=== PATIENT | female | born 1980 | race Caucasian/White ===

== ENCOUNTER → 2020-04-28 10:26 | Outpatient (CLI) | payer OTHER, SELFPAY ==
--- NOTE | 2020-04-28 10:27 | US_ITS ---
PROCEDURE: US TRANSVAGINAL CLINICAL INDICATION: heavy bleeding COMPARISON: US PTV US PELVIS-TRANSVAGINAL ONLY from 10/27/2014 FINDINGS: The uterus is 7 x 3 x 5 cm with a combined endometrial thickness of 6 mm. No uterine mass evident. Right ovary is 4 x 3 x 4 cm. Left ovary is 3 x 2 x 2 cm. Right ovarian cyst noted. This may represent 2 cysts or a single septated cyst which in combination measures 3.6 x 2.5 cm. No cul-de-sac fluid. There is a small left ovarian cyst noted measuring 1 cm. IMPRESSION: Bilateral ovarian cyst. Possible 2 cysts versus a septated cyst on the right. Consider follow-up to confirm stability or resolution. Dictated by: Gabe Dill MD 05/01/2020 06:26 Gabe Dill MD in OV 05/01/2020 06:26
== END ==
PROVIDERS: PCP Family Medicine; Visit Provider Nurse Practitioner Obstetrics & Gynecology
DX: N93.8 Other specified abnormal uterine and vaginal bleeding (principal)
CPT/HCPCS: 76830

== ENCOUNTER → 2020-05-04 09:21 | Outpatient (CLI) | payer OTHER, SELFPAY ==
[2020-05-04 09:56] LABS: Basophils % 0.4 % (0.1-2.0); Eosinophils # 0.2 K/mm3 (0.0-0.4); Eosinophils % 3.1 % (0.1-12.0); Hemoglobin 11.8 g/dL (12.2-16.2); Lymphocytes # 1.2 K/mm3 (0.7-4.5); Mean Corpuscular Hemoglobin 30.7 pg (27.0-31.2); Mean Corpuscular Volume 95.9 fl (81-99); Mean Platelet Volume 7.2 fl (7.4-10.4); Monocytes # 0.2 K/mm3 (0.1-1.0); Monocytes % 3.5 % (1.7-9.3); Neutrophils # 3.2 K/mm3 (1.8-7.8); Platelet Count 184 K/mm3 (142-424); Red Blood Count 3.85 M/mm3 (4.20-5.40); Red Cell Distribution Width 12.7 % (11.5-17.5); White Blood Count 4.8 K/mm3 (4.8-10.8)
[2020-05-04 10:21] LABS: Chloride 106 mmol/L (98-107); Sodium 135 mmol/L (136-145)
[2020-05-04 10:22] LABS: Potassium 4.2 mmoL/L (3.5-5.1)
[2020-05-04 10:24] LABS: Alanine Aminotransferase 25 U/L (12-78); Albumin Level 3.8 g/dl (3.5-5.0); Albumin/Globulin Ratio 1.4 (1.1-1.8); Alkaline Phosphatase 62 U/L (38-126); Anion Gap 12.2 mEq/L (5-15); Aspartate Amino Transferase 36 U/L (14-36); Bilirubin,Total 0.4 mg/dl (0.2-1.3); Blood Urea Nitrogen 17 mg/dl (7-17); Carbon Dioxide 21 mmol/L (22.0-30.0); Estimated Glomerular Filt Rate 70 ml/min (>60); GFR (African American) 84 ML/MIN (>60); Globulin 2.8 g/dL (1.3-3.2); HCG Qualitative, Serum Negative (Negative); Total Protein,Serum 6.6 g/dl (6.3-8.2)
[2020-05-04 10:25] LABS: Calcium 9.5 mg/dl (8.4-10.2); Glucose 98 mg/dl (74-100)
[2020-05-04 10:42] LABS: Triiodothryronine (T3) Uptake 29 % (23.5-40.5)
[2020-05-04 10:43] LABS: Free Thyroxine Index 2.6 ug/dL (5.93-13.13); T4 (Thyroxine) 8.8 ug/dl (5.53-11.0)
[2020-05-04 10:56] LABS: Thyroid Stimulating Hormone 3.12 uIU/mL (0.465-4.68)
[2020-05-04 11:03] LABS: Coronavirus 19 IgG Antibody Negative (Negative); Coronavirus 19 IgM Antibody Negative (Negative)
== END ==
PROVIDERS: Visit Provider Nurse Practitioner Obstetrics & Gynecology
DX: Z01.89 Encounter for other specified special examinations (principal); N92.0 Excessive and frequent menstruation with regular cycle; R10.2 Pelvic and perineal pain; Z30.09 Encounter for other general counseling and advice on contraception
CPT/HCPCS: 36415; 80053; 84436; 84443; 84479; 84703; 85025; 86328

== ENCOUNTER 2020-05-05 06:24 | Day surgery (SDC) | payer OTHER, SELFPAY ==
[2020-05-03 10:47] VITALS: BMI 34.5
[2020-05-05] VITALS (11 sets, daily range): BP systolic 103–143; BP diastolic 56–97; PULSE 56–97; RESP 14–20; TEMP 36.1–43; O2SAT 95–100
--- NOTE | 2020-05-05 08:03 | P.PN_ITS ---
[facility] Anesthesia Checklist - Structural Data Admitted From: Home Planned Operative Procedure/s: bilat salpingectomy Consent for Planned Operative Procedure(s) Verified: Yes - Additional verifications Anesthesia Reactions: No Hx Blood Transfusions: No Blood Transfusion Reaction: No - Airway Assessment C-Spine Mobility Assessed: Yes TMJ Mobility Assessed: Yes Dentition: Good Dentition - Neurological Assessment Level of Consciousness: Awake, Alert, Appropriate - Anesthesia Plan Anesthesia Risk discussed: Yes Anesthesia Plan: Verified ASA Class: II Anesthesia Type: General [facility] History I have reviewed the patient's past medical history: Yes Medical History: Denies:: Cancer, Diabetes Mellitus Type 1, Diabetes Mellitus Type 2, Internal Pacemaker, MRSA, Seizures *Have you ever received a pneumonia vaccine?: No *Have you received a flu vaccine this season?: No Other Medical History: Denies: Blood Transfusion Reaction Anesthesia experience/problems:: none Other Surgeries: No: Pacemaker Amputation: No Fractures: No - *Social History Smoking Status: Unknown if ever smoked Alcohol Intake: never Alcohol Intake Frequency:: other Substance Use Type: heroin, opiates *Occupational Status:: unemployed Housing: house Household Members: none *Travel in the last 8 weeks: None Family Hx:: No significant family history
--- NOTE | 2020-05-05 08:47 | HMH.OPNOTE ---
Date of procedure: 05/05/20 Pre-op Diagnosis:: Desire for sterilization, menorrhagia, dysmenorrhea Post-op Diagnosis:: Desire for sterilization, menorrhagia, dysmenorrhea, endometriosis, pelvic peritoneal adhesions Procedure performed:: Diagnostic laparoscopy with bilateral salpingectomy, lysis of adhesions, hysteroscopy, dilation and curettage, NovaSure ablation Surgeon:: Jarrett Nicholson MD [employer]ER:: Hank Denton Anesthesia: GETA Estimated blood loss (mL): 75 Clinical Note:: She is a 39-year-old lady who expressed desire for sterilization. She also had extremely heavy periods. Endometrial biopsy in my office was negative. After having discussed the risks and benefits she has to go ahead with a laparoscopic bilateral salpingectomy, hysteroscopy, dilation and curettage as well as NovaSure ablation. Operative findings:: On entering the abdominal cavity the uterus was small and anteverted. The right tube was normal as was the right ovary. The left ovary was twisted upon itself and adherent to the left pelvic sidewall near the insertion of the round ligament. The left tube was wrapped around the ovary. Upon freeing up the ovary it was noted that there was some dark old blood consistent with endometriosis. There was also spots of endometriosis all along the bladder flap. There was only one small pinhead size powder burn on the left side of the bladder peritoneum. The upper abdomen and rest of the pelvis appeared normal. Operative note:: She was taken to the operating room where general anesthesia was found be adequate. She was prepped and draped in normal sterile fashion in the semilithotomy position. A weighted speculum was placed in the vagina and the anterior lip of the cervix was grasped with a tenaculum. I then inserted a Mariela uterine manipulator into the cervical os. The balloon was then insufflated. I changed gloves and injected 10 cc of 0.5% ropivacaine around her umbilicus and made a small incision within the umbilicus. I inserted a Veress needle into the abdominal cavity. The peritoneal cavity was then insufflated with carbon dioxide gas to a pressure of 20 mmHg. I then inserted a 5 millimeter trocar under direct vision. I injected through and through the pubic hairline, made a small incision here and inserted an 8 mm trocar under direct vision. I identified the inferior epigastric artery on the left side, went lateral to these and injected through and through. I then placed a 5 mm trocar here under direct vision. The pelvis and upper abdomen were then inspected and the findings were as previously dictated. I grasped the right tube at the cornua and using harmonic scalpel on coagulation mode I cut through the tube. I then grasped the distal tube and using harmonic scalpel cut along the mesosalpinx. The tube was removed through 8 mm trocar site. On the patient's left side the ovary and tube were adherent to the left pelvic sidewall. It was also adherent to the epiploica of the sigmoid colon. Using harmonic scalpel I was able to free up these adhesions. I then grasped the left tube and using harmonic scalpel dissected off the ovary all the way to the uterine cornua. I then cut across the uterine cornea with harmonic scalpel. The tube was then removed through the 8 mm trocar site. After once again assuring hemostasis I then placed a large piece of Surgicel over the raw area slightly superior to the ovary. I then wrapped the ovary with a piece of Interceed. The pelvis was rinsed with saline. Hemostasis was once again assured. I then injected 30 cc of 0.5% ropivacaine into the pelvis. After assuring hemostasis the gas was let out of the abdomen and hemostasis was once again assured. The abdomen was then reinsufflated. The secondary trochars were removed under direct vision. The gas was let out her abdomen. The primary trocar was then removed. The 8 mm trocar site was closed deeply with 2-0 Vicryl suture followed by subc
--- NOTE | 2020-05-05 08:57 | HMH.ANESI ---
[facility] Anesthesia Record Part I Intake, IV Amount: 1,500 Estimated blood loss (mL): 70 Urine output (mL): 100 Blood Pressure: 143/97 SaO2: 98 Pulse Rate: 67 Respiratory Rate: 14 Temperature: 97 F Patient is:: Awake, Stable Stable to PACU at:: 08:55
--- NOTE | 2020-05-05 14:12 | HMH.ANESII ---
[facility] Anesthesia Record Part II Discharge Time: 09:25 Destination: [facility] PACU nurse assessment reviewed?: Yes Patient Condition:: Good Anesthesia Complications:: None Swallowing reflex intact?: Yes Cyanosis?: No Blood Pressure: 103/71 Pulse Rate: 63 Temperature: 97.8 F Mental Status: Alert & Oriented Pain level:: 3 Nausea and/or vomitting:: None Intake, IV Amount: 1,500
== END 2020-05-05 10:05 | disposition home or self-care (01) ==
LOC: OR 06:25
PROVIDERS: PCP Family Medicine; Visit Provider Nurse Practitioner Obstetrics & Gynecology
PROC: (CPT 58661; principal; 2020-05-05 07:30)
PROC: 0U5B8ZZ Destruction of Endometrium, Via Natural or Artificial Opening Endoscopic (ICD-10-PCS; CPT 58563; 2020-05-05 07:30)
DX: Z30.2 Encounter for sterilization (principal); N92.0 Excessive and frequent menstruation with regular cycle; Z79.899 Other long term (current) drug therapy
CPT/HCPCS: 58661; 58563; 96374; J2405; J2710

== ENCOUNTER → 2020-09-19 15:53 | Outpatient (CLI) | payer OTHER, SELFPAY ==
[2020-09-23 15:47] LABS: Neisseria gonorrhoeae, NAA Negative (Negative)
== END ==
PROVIDERS: Visit Provider Nurse Practitioner Obstetrics & Gynecology
DX: Z72.51 High risk heterosexual behavior (principal)
CPT/HCPCS: 87491; 87591

== ENCOUNTER 2020-12-08 16:15 | Emergency (ER) | payer OTHER, SELFPAY ==
[2020-12-08] VITALS (7 sets, daily range): BP systolic 107–127; BP diastolic 58–80; PULSE 43–66; RESP 16–18; TEMP 37.2; O2SAT 97–98; BMI 35.2; BMI 35.0
--- NOTE | 2020-12-08 16:45 | PC.NURSE ---
PATIENT SENT TO ER PER LYDIA WEBB APRN FOR FURTHER EVALUATION. REPORT GIVEN TO Andrew PAN RN BY Ashutosh WEBB APRN
--- NOTE | 2020-12-08 17:29 | CT_ITS ---
PROCEDURE INFORMATION: Exam: CT Abdomen And Pelvis Without Contrast Exam date and time: 12/08/2020 5:29 PM Age: 40 years old Clinical indication: Abdominal pain; Localized; Prior surgery; Surgery date: 6+ months; Surgery type: Fallopian tubes removed; Patient HX: Lower abd pain and cramping and lower back pain for weeks TECHNIQUE: Imaging protocol: Computed tomography of the abdomen and pelvis without contrast. Total images: 336 Radiation optimization: All CT scans at this facility use at least one of these dose optimization techniques: automated exposure control; mA and/or kV adjustment per patient size (includes targeted exams where dose is matched to clinical indication); or iterative reconstruction. COMPARISON: PTV US PELVIS-TRANSVAGINAL ONLY 10/27/2014 2:44 PM FINDINGS: Lungs: 2 mm noncalcified juxtapleural nodule in the posterior left lower lobe on series 3, image 9. For patients at low risk (minimal or absent history of smoking and of other known risk factors), no routine follow-up is indicated. For patients at high risk (history of smoking or of other known risk factors), consider optional CT at 12 months. (Kt et al., Fleischner Society, 2017). Heart: Heart size normal. Mediastinal space: The visualized distal esophagus is normal. Liver: Normal contour. No mass lesions. No intrahepatic biliary ductal dilatation. Gallbladder and bile ducts: The gallbladder is partially contracted but otherwise unremarkable. Nondilated biliary system. Pancreas: Normal. No inflammatory changes or ductal dilation. Spleen: Mild splenomegaly measuring 14.3 cm. Granulomatous calcifications in the spleen. Adrenal glands: 13 x 10 mm left adrenal adenoma measuring -20 Hounsfield units. Right adrenal gland is normal. Kidneys and ureters: No acute abnormalities. No hydronephrosis or hydroureter. 2 mm nonobstructive stone in the lower pole of the left kidney. Stomach and bowel: The stomach is unremarkable. The small bowel is nondilated with no gross abnormality. No acute colonic abnormalities. There is a moderate amount of stool distributed in the mid and proximal colon suggesting possible constipation. Appendix: The appendix is normal in caliber and demonstrates no evidence of appendicitis. Intraperitoneal space: No free fluid or air. Vasculature: No acute process. No abdominal aortic aneurysm. Lymph nodes: No adenopathy. Urinary bladder: Unremarkable as visualized. Reproductive: The uterus is unremarkable. 2.3 cm simple left adnexal cystic focus which may be of ovarian origin or possibly a paraovarian cyst. Thin 3 mm calcification laterally near the cyst may represent postoperative changes along the margin of the resected fallopian tube described clinically. Right ovary not visualized. Bones/joints: No acute osseous abnormalities. Soft tissues: Unremarkable. IMPRESSION: 1. Mild splenomegaly. 2. 2 mm noncalcified pulmonary nodule in the posterior left lower lobe. Please see recommendations above. 3. 13 mm left adrenal adenoma which does not require further evaluation. 4. Moderate stool in the mid and proximal colon, possible constipation. 5. 2.3 cm left adnexal cyst which may be of ovarian origin or a paraovarian cyst. Consider sonographic characterization to confirm simple features. COMMENTS: Consistent with the [employer]'s Incidental Findings Committee white paper (J Am Josefa Radiol 2017): For any incidental adrenal lesion greater than 1 cm but less than 4 cm classified in this report as benign, likely benign, or containing fat (including classification as an adenoma or myelolipoma), no follow-up imagi
[2020-12-08 17:34] LABS: Microscopic, Urine URINE MICROSCOPIC (MICROSCOPIC)
[2020-12-08 17:35] LABS: Appearance,Urine CLEAR (Clear); Bilirubin,Urine Negative (Negative); Blood, Urine Negative (Negative); Color,Urine YELLOW (Yellow); Glucose,Urine (UA) Negative (Negative); Ketones,Urine Negative (Negative); Leukocyte Esterase,Urine Negative (Negative); Nitrate,Urine Negative (Negative); Protein,Urine Negative (Negative); Specific Gravity, Urine 1.015 (1.005-1.030); Urobilinogen,Urine 0.2 EU/dl (0.2)
[2020-12-08 17:36] LABS: Apearance,Urine Cloudy (Clear); Bilirubin,Urine Negative (Negative); Blood, Urine Negative (Negative); Color,Urine Yellow (Yellow); Glucose,Urine (UA) Negative (Negative); Ketones,Urine Negative (Negative); Protein,Urine Negative (Negative); UTC Leukocyte Esterase,Urine Negative (Negative); UTC Nitrate,Urine Negative (Negative); Urobilinogen,Urine 0.2 EU/dl (0.2)
[2020-12-08 17:43] LABS: Bacteria,Urine Trace /lpf; Squamous Epithelial Cell,Urine Occasional #/hpf (0-5); WBC,Urine Occasional #/hpf (0-3)
[2020-12-08 17:44] LABS: Amorphous Sediment,Urine 2+ /lpf
[2020-12-08 17:51] LABS: Basophils % 0.4 % (0.1-2.0); Eosinophils # 0.1 K/mm3 (0.0-0.4); Eosinophils % 2.2 % (0.1-12.0); Hematocrit 36.6 % (37.0-47.0); Hemoglobin 12.2 g/dL (12.2-16.2); Lymphocytes # 1.9 K/mm3 (0.7-4.5); Lymphocytes % 33.4 % (10-50); Mean Corpuscular HGB Conc 33.5 g/dL (31.8-35.4); Mean Corpuscular Hemoglobin 30.8 pg (27.0-31.2); Mean Platelet Volume 7.8 fl (7.4-10.4); Monocytes # 0.3 K/mm3 (0.1-1.0); Monocytes % 5.7 % (1.7-9.3); Neutrophils # 3.3 K/mm3 (1.8-7.8); Neutrophils % 58.3 % (37.0-80.0); Platelet Count 161 K/mm3 (142-424); Red Blood Count 3.98 M/mm3 (4.20-5.40); Red Cell Distribution Width 13.1 % (11.5-17.5); White Blood Count 5.6 K/mm3 (4.8-10.8)
[2020-12-08 17:56] LABS: Chloride 111 mmol/L (98-107); Potassium 4.3 mmoL/L (3.5-5.1); Sodium 137 mmol/L (136-145)
[2020-12-08 17:58] LABS: Alanine Aminotransferase 19 U/L (12-78); Aspartate Amino Transferase 38 U/L (14-36); Blood Urea Nitrogen 17 mg/dl (7-17); Creatinine Clearance Estimated 146 mL/min (50-200); Estimated Glomerular Filt Rate 79 ml/min (>60); GFR (African American) 96 ML/MIN (>60)
[2020-12-08 17:59] LABS: Albumin Level 4.2 g/dl (3.5-5.0); Albumin/Globulin Ratio 1.4 (1.1-1.8); Alkaline Phosphatase 59 U/L (38-126); Anion Gap 8.3 mEq/L (5-15); Bilirubin,Total 0.3 mg/dl (0.2-1.3); Calcium 9.7 mg/dl (8.4-10.2); Carbon Dioxide 22 mmol/L (22.0-30.0); Globulin 2.9 g/dL (1.3-3.2); Glucose 102 mg/dl (74-100); Lipase 83 U/L (23-300); Total Protein,Serum 7.1 g/dl (6.3-8.2)
--- NOTE | 2020-12-08 18:53 | US_ITS ---
PROCEDURE INFORMATION: Exam: US Pelvis, Transvaginal Exam date and time: 12/08/2020 6:53 PM Age: 40 years old Clinical indication: Pelvic pain; Prior surgery; Surgery date: 6+ months; Surgery type: PT states both fallopian tubes have been removed; Patient HX: PT having pelvis pain PT states HX of ovarian cysts. PT had CT scan this evening CT report states a left ov cyst but on US exam lt ovary wnl and there is a cyst on the right ovary no free fluid. Small cystic area seen in fundus of uterus; Additional info: Pain, cyst TECHNIQUE: Imaging protocol: Real-time transvaginal pelvic ultrasound with image documentation. Transvaginal imaging was used for better evaluation of the endometrium, adnexa, and/or cervix. Total images: 38 COMPARISON: US TRANSVAGINAL 04/28/2020 11:19 AM FINDINGS: Uterus/cervix: The uterus measures 6.5 x 2.5 x 3.9 cm. Normal configuration. No solid mass lesions are identified. There is a 5 x 5 x 4 mm cystic focus in the rightward uterine fundus along the cornua with fairly simple sonographic features. No internal nodularity or septation is evident. This could represent an endometrial cyst or small degenerated fibroid. Correlate clinically to ensure negative beta HCG. Endometrial stripe thickness approximately 5 mm. Right adnexa: The right ovary measures 1.7 x 2.1 x 1.4 cm. Normal grayscale appearance with a 10 mm simple appearing cyst/follicle, within physiologic range. Internal color flow is documented without evidence of torsion. Left adnexa: The left ovary measures 1.2 x 1.4 x 1.2 cm. What was suspected to represent a cyst on the recent CT due to its low attenuation values of approximately 0 Hounsfield units actually represents the left ovary itself, with intermediate echogenicity sonographically. Internal color flow is documented with no evidence of torsion. Intraperitoneal space: No free fluid. IMPRESSION: 1. The ovaries are sonographically normal. The previously suspected cystic structure in the left adnexa actually represents the left ovary itself without gross sonographic abnormality. The right ovary contains a 10 mm simple follicle which is within physiologic range. 2. There is a 5 mm cystic focus in the rightward uterine fundus along the cornua, possibly an endometrial cyst or degenerated fibroid, new since 04/28/2020. Correlate with beta HCG to exclude early although no yolk sac or pole is evident and this seems unlikely given the surgical history.
--- NOTE | 2020-12-08 19:19 | HMH.EDGENADL ---
ED Disposition Clinical Impression: Ovarian cyst Qualifiers: Laterality: left Qualified Code(s): N83.202 - Unspecified ovarian cyst, left side Disposition: Still a Patient Condition on Discharge: Good Instructions: DI for Ovarian Cyst Prescriptions: Ibuprofen [Ibuprofen 800mg Tablet] 800 mg PO TIDP PRN #20 tab PRN Reason: Moderate Pain Transmission Status: Pending to [facility] Referrals: Ashly Esteban MD [Primary Care Provider] - Jarrett Nicholson MD [Staff Physician] - - Critical Care Critical Care Time: No Attestation: On 12/08/20, the high probability of a clinically significant, sudden or life threatening deterioration of the following system(s) required my full and direct attention, intervention and personal management. The time I documented below is in addition to time spent performing reported procedures but includes the following listed in this critical care notation. Medical Decision Making - Medical Records Medical records reviewed: Yes: I reviewed the patient's medical records. - Tyrel Inquiry Pt receiving controlled substance: Yes Tyrel was queried for this patient: No Risks and benefits of using a controlled substance: were discussed with pt by me Vital Signs: 12/08/20 16:16 12/08/20 16:27 12/08/20 16:30 Temperature 98.9 F 98.9 F 98.9 F Temperature Source Oral Oral Oral Pulse Rate [Right Radial] 66 66 66 Respiratory Rate 18 18 18 Blood Pressure [Right Arm] 125/80 125/80 125/80 Blood Pressure Mean [Right Arm] 95 95 95 Blood Pressure Source [Right Arm] Automatic Cuff Blood Pressure Position [Right Arm] Sitting 02 Sat by Pulse Oximetry 97 97 97 Oxygen Delivery Method Room Air Room Air Room Air - Lab Data Lab Results 12/08/20 16:30: Urine Color Yellow, Urine Appearance Clear, Urine pH 7.0, Ur Specific [place] 1.015, Urine Protein Negative, Urine Glucose (UA) Negative, Urine Ketones Negative, Urine Blood Negative, Urine Nitrate Negative, Urine Bilirubin Negative, Urine Urobilinogen 0.2, Ur Leukocyte Esterase Negative, Urine RBC None, Urine WBC Occasional, Ur Squamous Epith Cells Occasional, Amorphous Sediment 2+, Urine Bacteria Trace 12/08/20 17:35: Urine Color Yellow, Urine Appearance Cloudy, Urine pH 7.0, Ur Specific [place] 1.020, Urine Protein Negative, Urine Glucose (UA) Negative, Urine Ketones Negative, Urine Blood Negative, Urine Nitrate Negative, Urine Bilirubin Negative, Urine Urobilinogen 0.2, Ur Leukocyte Esterase Negative 12/08/20 17:42: WBC 5.6, RBC 3.98 L, Hgb 12.2, Hct 36.6 L, MCV 92.0, MCH 30.8, MCHC 33.5, RDW 13.1, Plt Count 161, MPV 7.8, Neut % (Auto) 58.3, Lymph % (Auto) 33.4, [place] % (Auto) 5.7, Eos % (Auto) 2.2, Baso % (Auto) 0.4, Neut # (Auto) 3.3, Lymph # (Auto) 1.9, [place] # (Auto) 0.3, Eos # (Auto) 0.1, Baso # (Auto) 0.0 12/08/20 17:42: Sodium 137, Potassium 4.3, Chloride 111 H, Carbon Dioxide 22, Anion Gap 8.3, BUN 17, Creatinine 0.80, Estimated Creat Clear 146, Estimated GFR 79, Est GFR ( Amer) 96, Glucose 102 H, Calcium 9.7, Total Bilirubin 0.3, AST 38 H, ALT 19, Alkaline Phosphatase 59, Total Protein 7.1, Albumin 4.2, Globulin 2.9, Albumin/Globulin Ratio 1.4, Lipase 83 Result diagrams: 12/08/20 17:42 12/08/20 17:42 Orders (Tests/Meds): ED MEDICATIONS Generic Name Dose Route Start Last Admin Trade Name Freq PRN Reason Stop Dose Admin Sodium Chloride 1,000 mls @ 999 mls/hr 12/08/20 17:30 12/08/20 17:47 Sod Chlor 0.9% 1000ml Bag IV 12/08/20 18:30 999 mls/hr .[id number] YNES Administration Discontinued Medications Generic Name Dose Route Start Last Admin Trade Name Freq PRN Reason Stop Dose Admin Ketorolac Tromethamine 30 mg 12/08/20 17:29 12/08/20 17:46 Ketorolac 30mg/Ml Vial IV 12/08/20 17:30 30 mg ONCE ONE Administration Morphine Sulfate 4 mg 12/08/20 17:29 12/08/20 17:46 Morphine 4mg/Ml Syringe IV 12/08/20 17:30 4 mg ONCE ONE Administration Ondansetron HCl 4 mg 12/08/20 17:29 12/08/20 17:46 Ondanset
[2020-12-08 21:00] LABS: Urine Pregnancy, HCG Qual. Negative (Negative)
== END 2020-12-08 20:50 | disposition home or self-care (01) ==
LOC: UTC 16:35 → ER 16:56
PROVIDERS: Nurse Practitioner Family; Emergency Provider Emergency Medicine; PCP Family Medicine
DX: N83.202 Unspecified ovarian cyst, left side (principal); Z87.891 Personal history of nicotine dependence
CPT/HCPCS: 74176; 76830; 80053; 81001; 81003; 81025; 83690; 85025; 96365; 96375; 99283; J2405

== ENCOUNTER → 2021-07-24 20:19 | Outpatient (CLI) | payer OTHER, SELFPAY | PROVIDERS: Visit Provider Nurse Practitioner Family | DX: J02.9 Acute pharyngitis, unspecified (principal) ==

== ENCOUNTER → 2022-01-23 15:49 | Outpatient (CLI) | payer OTHER, SELFPAY ==
[2022-01-23 14:14] LABS: Basophils % 0.7 % (0.1-2.0); Eosinophils # 0.1 K/mm3 (0.0-0.4); Hematocrit 39.9 % (37.0-47.0); Hemoglobin 12.9 g/dL (12.2-16.2); Lymphocytes # 1.4 K/mm3 (0.7-4.5); Lymphocytes % 38.7 % (10-50); Mean Corpuscular HGB Conc 32.4 g/dL (31.8-35.4); Mean Corpuscular Hemoglobin 30.3 pg (27.0-31.2); Mean Corpuscular Volume 93.3 fl (81-99); Mean Platelet Volume 8.5 fl (7.4-10.4); Monocytes # 0.2 K/mm3 (0.1-1.0); Monocytes % 5.9 % (1.7-9.3); Neutrophils # 1.9 K/mm3 (1.8-7.8); Neutrophils % 51.8 % (37.0-80.0); Platelet Count 169 K/mm3 (142-424); Red Blood Count 4.28 M/mm3 (4.20-5.40); Red Cell Distribution Width 12.6 % (11.5-17.5); White Blood Count 3.6 K/mm3 (4.8-10.8)
[2022-01-23 14:20] LABS: Alanine Aminotransferase 23 U/L (12-78); Albumin Level 4.2 g/dl (3.5-5.0); Albumin/Globulin Ratio 1.5 (1.1-1.8); Alkaline Phosphatase 60 U/L (38-126); Anion Gap 13.8 mEq/L (5-15); Aspartate Amino Transferase 53 U/L (14-36); Blood Urea Nitrogen 19 mg/dl (7-17); Carbon Dioxide 23 mmol/L (22.0-30.0); Chloride 111 mmol/L (98-107); Chol/HDL Ratio 3.1 (1-3.5); Cholesterol 227 mg/dl (140-200); Estimated Glomerular Filt Rate 79 ml/min (>60); GFR (African American) 96 ML/MIN (>60); Globulin 2.8 g/dL (1.3-3.2); Glucose 99 mg/dl (74-100); HDL Cholesterol 73 mg/dl (40-60); Potassium 5.8 mmoL/L (3.5-5.1); Sodium 142 mmol/L (136-145); Triglycerides 91 mg/dl (30-150); VLDL Cholesterol 18 mg/dL (0-40)
[2022-01-23 14:21] LABS: Bilirubin,Total < 0.1 mg/dl (0.2-1.3)
[2022-01-23 14:32] LABS: Direct LDL Cholesterol 111.77 mg/dL (100-129)
[2022-01-23 14:36] LABS: 25-OH Vitamin D, Total 34.4 ng/mL (30-100); Free T4 (Free Thyroxine) 0.67 ng/dl (0.78-2.19)
== END ==
PROVIDERS: Visit Provider Emergency Medicine
DX: E55.9 Vitamin D deficiency, unspecified (principal); R53.83 Other fatigue
CPT/HCPCS: 80053; 80061; 82306; 84439; 84443; 85025

== ENCOUNTER → 2022-04-02 13:03 | Outpatient (CLI) | payer OTHER, SELFPAY ==
--- NOTE | 2022-04-02 13:03 | MR_ITS ---
FINAL REPORT CLINICAL HISTORY: back pain LOWER BACK PAIN WITH RIGHT SIDED HIP/LEG PAIN AND NUMBNESS FINDINGS: Multiplanar MR imaging of the lumbar spine was performed without contrast. On the sagittal T2-weighted images, disc degeneration is seen at several levels. The vertebral alignment is normal. There is no evidence of fracture. The conus has an unremarkable appearance. L1-2: An annular bulge and osteophytes are present. There is no significant canal stenosis or neural foraminal narrowing. L2-3: There is no significant canal stenosis or neural foraminal narrowing. L3-4: An annular bulge is present. There is no significant canal stenosis or neural foraminal narrowing. L4-5: An annular bulge is present. There is no significant canal stenosis or neural foraminal narrowing. L5-S1: An annular bulge is present with mild left neural foraminal narrowing. IMPRESSION: Multilevel degenerative disc disease. Reviewed, Interpreted and Dictated by Truong Amos III, MD Transcribed by Ingrid Rasheed Authenticated and [facility]
== END ==
PROVIDERS: PCP Emergency Medicine; Visit Provider Emergency Medicine
DX: M54.9 Dorsalgia, unspecified (principal); M54.50 Low back pain, unspecified; M54.16 Radiculopathy, lumbar region; R20.0 Anesthesia of skin
CPT/HCPCS: 72148; 76376

== ENCOUNTER → 2022-05-13 14:29 | Outpatient (CLI) | payer OTHER, SELFPAY ==
--- NOTE | 2022-05-13 14:51 | XR_ITS ---
FINAL REPORT CLINICAL HISTORY: foot pain, right posterior foot pain. Weightbearing views. FINDINGS: RIGHT FOOT Three weight-bearing views of the right foot demonstrate no acute fracture or dislocation. The visualized joint spaces are normally aligned. The joint spaces are preserved. The soft tissues are unremarkable. IMPRESSION: No acute bony abnormality. Reviewed, Interpreted and Dictated by Truong Amos III, MD Transcribed by Brooke Orozco Authenticated and [facility]
== END ==
PROVIDERS: PCP Emergency Medicine; Visit Provider Podiatrist
DX: M79.671 Pain in right foot (principal)
CPT/HCPCS: 73630

== ENCOUNTER → 2022-06-14 16:12 | Outpatient (CLI) | payer OTHER, SELFPAY ==
--- NOTE | 2022-06-14 16:13 | MM_ITS ---
PROCEDURE INFORMATION: Exam: MG Bilateral Screening 3D Mammography Exam date and time: 06/14/2022 4:06 PM Age: 41 years old Clinical indication: Screening examination TECHNIQUE: Imaging protocol: Bilateral Screening tomosynthesis and 2D mammography including computer-aided detection (CAD) when performed. COMPARISON: No relevant prior studies available. FINDINGS: MAMMOGRAPHY: Breast composition: There are scattered areas of fibroglandular density. Mass: None. Architectural distortion: None. Calcifications: No suspicious calcifications. Asymmetric density: None. Skin thickening: None. Axillary adenopathy: None. IMPRESSION: No mammographic evidence of malignancy. Annual screening is recommended unless otherwise clinically indicated. ASSESSMENT: BI-RADS Category 1: Negative
== END ==
PROVIDERS: PCP Emergency Medicine; Visit Provider Emergency Medicine
DX: Z12.31 Encounter for screening mammogram for malignant neoplasm of breast (principal)
CPT/HCPCS: 77063; 77067

== ENCOUNTER → 2023-01-21 14:15 | Outpatient (CLI) | payer OTHER, SELFPAY ==
[2023-01-21 12:35] LABS: Basophils % 0.1 % (0.1-2.0); Eosinophils # 0.1 K/mm3 (0.0-0.4); Eosinophils % 3.4 % (0.1-12.0); Hemoglobin 12.8 g/dL (12.2-16.2); Lymphocytes # 1.5 K/mm3 (0.7-4.5); Lymphocytes % 34.4 % (10-50); Mean Corpuscular HGB Conc 31.9 g/dL (31.8-35.4); Mean Corpuscular Hemoglobin 29.5 pg (27.0-31.2); Mean Corpuscular Volume 92.5 fl (81-99); Mean Platelet Volume 8.8 fl (7.4-10.4); Monocytes # 0.2 K/mm3 (0.1-1.0); Monocytes % 3.6 % (1.7-9.3); Neutrophils # 2.5 K/mm3 (1.8-7.8); Neutrophils % 58.4 % (37.0-80.0); Platelet Count 153 K/mm3 (142-424); Red Blood Count 4.33 M/mm3 (4.20-5.40); Red Cell Distribution Width 13.2 % (11.5-17.5); White Blood Count 4.2 K/mm3 (4.8-10.8)
[2023-01-21 12:43] LABS: Alanine Aminotransferase 18 U/L (12-78); Albumin Level 4.2 g/dl (3.5-5.0); Albumin/Globulin Ratio 1.5 (1.1-1.8); Alkaline Phosphatase 62 U/L (38-126); Anion Gap 14.1 mEq/L (5-15); Aspartate Amino Transferase 31 U/L (14-36); Bilirubin,Total 0.3 mg/dl (0.2-1.3); Blood Urea Nitrogen 15 mg/dl (7-17); Carbon Dioxide 19 mmol/L (22.0-30.0); Chloride 110 mmol/L (98-107); Chol/HDL Ratio 3.6 (1-3.5); Cholesterol 193 mg/dl (140-200); Estimated Glomerular Filt Rate 69 ml/min (>60); GFR (African American) 83 ML/MIN (>60); Globulin 2.8 g/dL (1.3-3.2); Glucose 87 mg/dl (74-100); HDL Cholesterol 54 mg/dl (40-60); Potassium 4.1 mmoL/L (3.5-5.1); Sodium 139 mmol/L (136-145); Triglycerides 84 mg/dl (30-150); VLDL Cholesterol 17 mg/dL (0-40)
[2023-01-21 12:55] LABS: Direct LDL Cholesterol 105.96 mg/dL (100-129)
[2023-01-21 13:01] LABS: Free T4 (Free Thyroxine) 0.65 ng/dl (0.78-2.19)
== END ==
PROVIDERS: PCP Emergency Medicine; Visit Provider Emergency Medicine
DX: E03.9 Hypothyroidism, unspecified (principal); E66.9 Obesity, unspecified; Z68.35 Body mass index [BMI] 35.0-35.9, adult; Z79.899 Other long term (current) drug therapy
CPT/HCPCS: 80053; 80061; 82306; 84439; 84443; 85025

== ENCOUNTER 2024-03-15 11:00 | Outpatient (CLI) | payer SELFPAY ==
[2024-03-15 18:23] LABS: Basophils % 0.3 % (0.1-2.0); Eosinophils # 0.2 K/mm3 (0.0-0.4); Eosinophils % 2.4 % (0.1-12.0); Hematocrit 41.6 % (37.0-47.0); Hemoglobin 12.8 g/dL (12.2-16.2); Lymphocytes # 1.5 K/mm3 (0.7-4.5); Lymphocytes % 20.2 % (10-50); Mean Corpuscular HGB Conc 30.9 g/dL (31.8-35.4); Mean Corpuscular Hemoglobin 31.1 pg (27.0-31.2); Mean Corpuscular Volume 100.6 fl (81-99); Mean Platelet Volume 9.3 fl (7.4-10.4); Monocytes # 0.3 K/mm3 (0.1-1.0); Monocytes % 3.7 % (1.7-9.3); Neutrophils # 5.3 K/mm3 (1.8-7.8); Neutrophils % 73.5 % (37.0-80.0); Platelet Count 173 K/mm3 (142-424); Red Blood Count 4.13 M/mm3 (4.20-5.40); Red Cell Distribution Width 12.9 % (11.5-17.5); White Blood Count 7.2 K/mm3 (4.8-10.8)
[2024-03-15 18:54] LABS: Alanine Aminotransferase 24 U/L (12-78); Albumin/Globulin Ratio 1.3 (1.1-1.8); Alkaline Phosphatase 53 U/L (38-126); Anion Gap 11.4 mEq/L (5-15); Aspartate Amino Transferase 31 U/L (14-36); Bilirubin,Total 0.3 mg/dl (0.2-1.3); Blood Urea Nitrogen 22 mg/dl (7-17); Calcium 9.8 mg/dl (8.4-10.2); Carbon Dioxide 19 mmol/L (22.0-30.0); Chloride 112 mmol/L (98-107); Cholesterol 235 mg/dl (140-200); Estimated Glomerular Filt Rate 78 ml/min (>60); GFR (African American) 95 ML/MIN (>60); Globulin 3.1 g/dL (1.3-3.2); Glucose 90 mg/dl (74-100); Potassium 4.4 mmoL/L (3.5-5.1); Sodium 138 mmol/L (136-145); Total Protein,Serum 7.1 g/dl (6.3-8.2); Triglycerides 55 mg/dl (30-150); VLDL Cholesterol 11 mg/dL (0-40)
[2024-03-15 19:05] LABS: Direct LDL Cholesterol 77.42 mg/dL (100-129)
[2024-03-15 19:06] LABS: HIV (1&2) Antibody Rapid NONREACTIVE (NONREACTIVE)
[2024-03-15 19:14] LABS: Chol/HDL Ratio 1.9 (1-3.5); HDL Cholesterol 123 mg/dl (40-60)
[2024-03-15 19:41] LABS: Hemoglobin A1C 4.9 % (4.0-6.0)
[2024-03-15 19:53] LABS: 25-OH Vitamin D, Total 21.2 ng/mL (30-100)
[2024-03-18 05:10] LABS: HBsAg Screen Negative (Negative); HCV Ab Non Reactive (Non Reactive); Hep A Ab, IGM Negative (Negative); Hep B Core Ab, IgM Negative (Negative)
== END 2024-03-15 23:59 | disposition home or self-care (01) ==
LOC: LAB.DROPOF 03-16 09:01
PROVIDERS: PCP Internal Medicine; Visit Provider Internal Medicine
DX: N95.1 Menopausal and female climacteric states (principal); E03.9 Hypothyroidism, unspecified; G62.9 Polyneuropathy, unspecified; E66.9 Obesity, unspecified; Z68.32 Body mass index [BMI] 32.0-32.9, adult
CPT/HCPCS: 80053; 80061; 80074; 82306; 83036; 84443; 85025

== ENCOUNTER 2024-09-21 15:40 | Outpatient (CLI) | payer OTHER, SELFPAY ==
[2024-09-21 16:20] LABS: Basophils % 0.4 % (0.1-2.0); Eosinophils # 0.1 K/mm3 (0.0-0.4); Eosinophils % 2.2 % (0.1-12.0); Hematocrit 37.9 % (37.0-47.0); Hemoglobin 12.4 g/dL (12.2-16.2); Lymphocytes # 1.7 K/mm3 (0.7-4.5); Lymphocytes % 31.7 % (10-50); Mean Corpuscular HGB Conc 32.7 g/dL (31.8-35.4); Mean Corpuscular Hemoglobin 31.4 pg (27.0-31.2); Mean Corpuscular Volume 95.9 fl (81-99); Mean Platelet Volume 9.5 fl (7.4-10.4); Monocytes # 0.4 K/mm3 (0.1-1.0); Monocytes % 6.6 % (1.7-9.3); Neutrophils # 3.2 K/mm3 (1.8-7.8); Neutrophils % 58.7 % (37.0-80.0); Platelet Count 188 K/mm3 (142-424); Red Blood Count 3.95 M/mm3 (4.20-5.40); Red Cell Distribution Width 12.8 % (11.5-17.5); White Blood Count 5.5 K/mm3 (4.8-10.8)
[2024-09-21 16:57] LABS: Alanine Aminotransferase 20 U/L (12-78); Albumin/Globulin Ratio 2.1 (1.1-1.8); Alkaline Phosphatase 54 U/L (38-126); Anion Gap 10.9 mEq/L (5-15); Aspartate Amino Transferase 29 U/L (14-36); Bilirubin,Total 0.3 mg/dl (0.2-1.3); Blood Urea Nitrogen 18 mg/dl (7-17); Calcium 9.8 mg/dl (8.4-10.2); Carbon Dioxide 23 mmol/L (22.0-30.0); Chloride 108 mmol/L (98-107); Estimated Glomerular Filt Rate 78 ml/min (>60); GFR (African American) 95 ML/MIN (>60); Globulin 2.4 g/dL (1.3-3.2); Glucose 85 mg/dl (74-100); Potassium 3.9 mmoL/L (3.5-5.1); Sodium 138 mmol/L (136-145); Total Protein,Serum 7.4 g/dl (6.3-8.2)
[2024-09-21 17:12] LABS: Free Thyroxine Index 1.5 ug/dL (5.93-13.13); T4 (Thyroxine) 5.3 ug/dl (5.53-11.0); Triiodothryronine (T3) Uptake 28 % (23.5-40.5)
[2024-09-21 17:15] LABS: 25-OH Vitamin D, Total 38.3 ng/mL (30-100)
[2024-09-22 10:24] LABS: FSH 16.4 mIU/mL (.); LH 18.7 mIU/mL (.)
== END 2024-09-21 23:59 | disposition home or self-care (01) ==
PROVIDERS: PCP Family Medicine; Visit Provider Nurse Practitioner Obstetrics & Gynecology
DX: E03.9 Hypothyroidism, unspecified (principal); N95.1 Menopausal and female climacteric states
CPT/HCPCS: 36415; 80053; 82306; 82670; 83001; 83002; 84436; 84443; 84479; 85025

== ENCOUNTER 2024-10-13 10:19 | Outpatient (CLI) | payer OTHER, SELFPAY | END 2024-10-13 23:59 | disposition home or self-care (01) | LOC: LAB.DROPOF 10:20 | PROVIDERS: PCP Family Medicine; Visit Provider Family Medicine | DX: R19.7 Diarrhea, unspecified (principal) | CPT/HCPCS: 87177 ==